=== PATIENT | female | born 1965 | race Caucasian/White ===

== ENCOUNTER 2016-11-23 21:38 | Emergency (ER) | payer OTHER, MEDICARE ==
[~2016-11-23] VITALS: Ht 162.6 cm; Wt 75.3 kg
[~2016-11-23 21:38] MED LIST: AMILORIDE HCL5 MG PO; ASPIR 8181 MG PO; CLONAZEPAM0.5 M2 PO; LAC-HYDRIN121 TOP; LEVEMIR100 U/ML SC; LEXAPRO 10MG10 MG PO; NORVASC 5MG TAB5 MG PO; NOVOLOG100 U/ML SC; PERCOCET 325 MG1 TAB PO; ROBAXIN 500MG500 MG PO; SIMVASTATIN20 MG PO; TEMOVATE TOP; VITAMIN D1000 IU PO
[2016-11-23 22:38] LABS: ABSOLUTE BASOPHIL COUNT 0 /CUMM (0.0-0.2); ABSOLUTE EOSINOPHIL COUNT 0 /CUMM (0.0-0.7); ABSOLUTE GRANULOCYTE CT 3.3 /CUMM (1.4-6.5); ABSOLUTE LYMPH COUNT 1.2 /CUMM (1.2-3.4); ABSOLUTE MONOCYTE COUNT 0.6 /CUMM (0.10-0.60); BASOPHIL % 0.2 % (0.0-2.0); EOSINOPHIL % 0.4 % (0-5); GRANULOCYTE % 64.6 % (42.2-75.2); HEMATOCRIT 32.9 % (37-47); MEAN CORPUSCULAR HGB 27.1 PG (27.0-31.0); MEAN CORPUSCULAR HGB CONC 33.4 G/DL (33.0-37.0); MEAN CORPUSCULAR VOLUME 81.1 FL (81.0-99.0); MEAN PLATELET VOLUME 7.6 FL (7.4-10.4); PLATELET COUNT 213 /CUMM (130-400); RBC DISTRIBUTION WIDTH 14.2 % (11.5-14.5); RED BLOOD CELL CT 4.05 /CUMM (4.20-5.40); WHITE BLOOD CELL COUNT 5.1 /CUMM (4.8-10.8)
[2016-11-23 22:56] VITALS: BP 102/53
--- NOTE | 2016-11-23 23:02 | RADIOLOGY REPORT ---
EXAMINATION: XR CHEST CLINICAL INFORMATION: Cough and fever COMPARISON: Chest x-ray 08/05/2015 TECHNIQUE: PA and lateral views of the chest were obtained. FINDINGS: No significant abnormality is noted involving the heart, lungs, mediastinum, bony thorax, or soft tissues. IMPRESSION: No acute abnormality of the chest.
[2016-11-23] MEDS ORDERED: DOXYCYCLINE HY100 M4 PO (23:15)
--- NOTE | 2016-11-23 23:16 | ED INFLUENZA/URI COMPLAINT ---
History of Present Illness General Chief Complaint: Upper Respiratory Sx/Fever Stated Complaint: UPPER RESP SYMPTOMS Source: patient Exam Limitations: no limitations Vital Signs & Intake/Output Vital Signs & Intake/Output Vital Signs Date Time Temp Pulse Resp B/P Pulse O2 O2 Flow FiO2 Ox Delivery Rate 11/23 2257 101.5 11/236 101.3 69 16 102/53 100 Room Air 11/23 2149 102.5 95 20 141/84 99 Room Air Allergies Coded Allergies: Penicillins (Intermediate, UNKNOWN 11/23/16) ciprofloxacin (Intermediate, RASH 11/23/16) Sulfa (Sulfonamide Antibiotics) (HIVES 11/23/16) Reconcile Medications Amiloride Hydrochloride (Amiloride HCl) 5 MG TAB 1 TAB PO DAILY DIURESIS ( Reported) Aspirin (Ecotrin) 81 MG ECT 1 TAB PO DAILY HEART HEALTH (Reported) Azithromycin 250 MG TABLET 1 DP PO AD ANTIBIOTIC (Reported) 2 the first day followed by 1 for days 2-5 Clonazepam 0.5 MG TABLET 1 TAB PO 4 TIMES/DAY ANXIETY (Reported) Doxycycline Hyclate 100 MG TABLET 1 TAB PO BID sinusitis Escitalopram Oxalate (Lexapro 10MG) 10 MG TAB 1 TAB PO AT BEDTIME ANXIETY ( Reported) Gabapentin (Neurontin) 300 MG CAPSULE 1 CAP PO TID NEUROPATHY (Reported) Guaifenesin/Codeine Phosphate (Cheratussin AC Syrup) 100 MG-10 MG/5 ML LIQUID 10 ML PO Q4P PRN COUGH (Reported) Insulin Aspart, Recombinant (Novolog) 100 U/ML DMITRI 0 UNITS SC TIDAC GLUCOSE CONTROL (Reported) BLOOD SUGAR # OF UNITS < 80 NONE 80-150 NONE 151-200 4 UNITS 201-250 6 UNITS 251-300 8 UNITS 301-350 10 UNITS 351-400 12 UNITS >400 14 UNITS and call Insulin Glargine,Hum.rec.anlog (Toujeo Solostar) 300 UNIT/ML (1.5 ML) INSULN.PEN 30 UNITS SC QPM DM (Reported) Methocarbamol (Robaxin 500MG) 500 MG TAB 1 TAB PO AT BEDTIME MUSCLE SPASM ( Reported) Oxycodone HCl 10 MG TABLET 1 TAB PO Q3-4H PRN PAIN (Reported) Simvastatin (Zocor) 20 MG TAB 1 TAB PO QPM CHOLESTEROL (Reported) Triage Note: TRIAGE: PT TO ER C/C URI S/S, ONSET THIS MORNING. HAD DIARRHEA AND STOMACH CRAMPS WITH HEAD COLD THE OTHER DAY. TEMP 102.5 AT TRIAGE. PT WAS TAKING HUSBANDS UNUSED ZPACK (FULL PRESCRIPTION), HAS ONE DAY LEFT. REPORTS COUGH IS PRODUCTIVE WITH GREEN PHLEGM. Triage Nurses Notes Reviewed? yes Onset: Abrupt Duration: week(s): (1), constant, continues in ED Timing: recent history Severity: moderate, severe No Modifying Factors: none HPI: 51-year-old female comes into emergency room with complaints of nasal congestion , runny nose, cough with mucus production. Patient has been sick since last Saturday. Patient started with vomiting and diarrhea. Patient had upper respiratory symptoms. The symptoms have persisted. Patient has been running a fever at home. Denies any, pain. Patient was started on a Z-Italo a few days ago that her had that was unopened. Symptoms continued to be persistent. ([place]) Past History Travel History Traveled to [place] past 21 day No Medical History Any Pertinent Medical History? see below for history Neurological: restless leg syndrome EENT: NONE Cardiovascular: hypertension, hyperlipidemia Respiratory: NONE Gastrointestinal: NONE Hepatic: NONE Renal: NONE Musculoskeletal: osteoarthritis, CHRONIC BACK PAIN Psychiatric: anxiety, depression Endocrine: diabetes, diabetic ketoacidosis Blood Disorders: NONE Cancer(s): NONE RECRUITMENT DIRECTOR/Reproductive: NONE Other Medical Hx: rosacea History of MRSA: No History of VRE: No History of CDIFF: No Tetanus Vaccine: 06/19/13 Surgical History Surgical History: carpal tunnel surgery Psychosocial History Who do you live with Spouse Services at Home None What is your primary language Argentine Tobacco Use: Quit >30 days ago ETOH Use: occasional use Illicit Drug Use: denies illicit drug use Family History Family History, If Any: BROTHER FH: diabetes mellitus BROTHER FH: hypertension MOTHER FH: coronary artery bypass surgery FH: stroke FATHER FH: hypertension Hx Contributory? No ([place]) Review of Systems Review of Systems Constitutional: Reports: see HPI. EENTM: Reports: see HPI. Respiratory: Reports: see HPI. Cardiovascular: Reports: no symptoms. GI: Reports: no symptoms. Genitourinary: Reports: no symptoms. Musculoskeletal: Reports: no symptoms. Skin: Reports: no symptoms. Neurological/Psychological: Reports: no symptoms. Hematologic/Endocrine: Reports: no symptoms. Immunologic/Allergic: Reports: no symptoms. All Other Systems: Reviewed and Negative ([place]) Physical Exam Physical Exam General Appearance: well developed/nourished, alert, awake, mild distress Head: atraumatic Eyes: Bilateral: normal appearance, EOMI. Ears, Nose, Throat: normal ENT inspection, moist mucous membrane, nasal congestion, nasal drainage Neck: normal inspection Respiratory: no respiratory distress, decreased breath sounds (right lower lugn base) Cardiovascular: regular rate/rhythm Back: normal inspection Extremities: normal inspection, normal range of motion Neurologic/Psych: awake, alert, oriented x 3, normal gait, normal mood/affect Skin: intact, normal color Core Measures Severe Sepsis Present: No Septic Shock Present: No ([place]) Progress Differential Diagnosis: influenza, meningitis, neutropenia, otitis, pneumonia, pharyngitis, sinusitis Plan of Care: Orders Procedure Date/time Status COMPREHENSIVE METABOLIC PANEL 11/23 2211 Active CBC WITHOUT DIFFERENTIAL 11/23 2211 Complete RAPID VIRAL INFLUENZA A 11/23 2156 Complete Current Medications Sig/Issac Start time Last Medication Dose Stop Time Status Admin Sodium Chloride 1,000 ML BOLUS ONE 11/23 2330 AC (Normal Saline 0.9%) 11/24 0029 Ketorolac 60 MG ONCE ONE 11/23 2215 CAN Tromethamine 11/23 221 (Toradol) Laboratory Tests 11/23/16 2316: Urine Color Cancelled, Urine Clarity Cancelled, Urine pH Cancelled, Ur Specific [place] Cancelled, Urine Protein Cancelled, Urine Ketones Cancelled, Urine Nitrite Cancelled, Urine Bilirubin Cancelled, Urine Urobilinogen Cancelled, Ur Leukocyte Esterase Cancelled, Ur Microscopic Cancelled, Urine Hemoglobin Cancelled, Urine Glucose Cancelled 11/23/16 2231: Anion Gap 14, Estimated GFR > 60, BUN/Creatinine Ratio Pending, Glucose 301 H, Calcium 8.4, Total Bilirubin 0.4, AST 22, ALT 25, Alkaline Phosphatase 173 H, Total Protein 6.4, Albumin 3.7, Globulin 2.7, Albumin/Globulin Ratio Pending, CBC w Diff NO MAN DIFF REQ, RBC 4.05 L, MCV 81.1, MCH 27.1, RDW 14.2, MPV 7.6, Gran % 64.6, Lymphocytes % 22.4, Monocytes % 12.4 H, Eosinophils % 0.4, Basophils % 0.2, Absolute Granulocytes 3.3, Absolute Lymphocytes 1.2, Absolute Monocytes 0.6, Absolute Eosinophils 0, Absolute Basophils 0, PUBS MCHC 33.4 Diagnostic Imaging: Viewed by Me: Radiology Read. Discussed w/RAD: Radiology Read. Radiology Impression: SERVICE DATE: 11/23/16 EXAM TYPE: RAD - XRY-CHEST XRAY, PA AND LATERAL EXAMINATION: XR CHEST CLINICAL INFORMATION: Cough and fever COMPARISON: Chest x-ray 08/05/2015 TECHNIQUE: PA and lateral views of the chest were obtained. FINDINGS: No significant abnormality is noted involving the heart , lungs, mediastinum, bony thorax, or soft tissues. IMPRESSION: No acute abnormality of the chest. Initial ED EKG: none (JAXON STEPHENS,B[place]) Departure Departure Disposition: HOME OR SELF CARE Condition: Stable Clinical Impression Primary Impression: Sinusitis Secondary Impressions: Hyponatremia, Viral syndrome Referrals: SOULEYMANE HARRIS,ESTEVAN Cortez (PCP/Family) Additional Instructions: Take doxycycline as prescribed. Rest. Drink plenty of fluids. Return if any other concerns worsening symptoms. Heavy sodium rechecked by her primary care doctor. Return if any other concerns. Please go over all results of today's visit with your primary care doctor. Contact your primary care doctor to let them know you were here in the emergency room. There may be nonspecific findings which may not be related to your visit today here in the emergency room but may require further evaluation and chronic monitoring by your primary care doctor. If you had a laceration today the chance of foreign body always remains. You should follow-up with your primary care doctor for recheck in 3-5 days for a wound check. If you had an x-ray done there is a chance that a fracture could have been missed on initial read and you should follow-up with your primary care doctor for repeat x-rays if symptoms persist. If your blood pressure was elevated here in the emergency room please have rechecked by her primary care doctor within the next 48 hours by your primary care doctor. If you were prescribed a narcotic here in the emergency room or any type of controlled substances you're not allowed to drive while taking this medication or operate any type of heavy machinery. Narcotics can make you feel lightheaded dizziness nausea and can cause constipation. You may need to flower buncher or picker a stool softener. Thank you for choosing [facility] emergency room. Please return to the emergency room immediately if you have any other concerns worsening of symptoms. Departure Forms: Customer Survey General Discharge Information Prescriptions: Current Visit Scripts Doxycycline Hyclate 1 TAB PO BID #14 TAB Comments Patient feels significantly better after IV fluids and IV Toradol. Despite negative flu swab This could likely be influenza. Patient covered with doxycycline to cover atypical pneumonia versus sinusitis. Patient needs close follow-up with primary care doctor. Return if any other concerns. Patient was reevaluated multiple times. Shared decision making patient agrees with plan of care. Upon discharge patient feels much better and clinically looks better. Patient needs to stay hydrated at home. Symptoms likely viral. ([place]) PA/WEAVE ROOM SUPERVISOR Co-Sign Statement Statement: ED Attending supervision documentation- [] I saw and evaluated the patient. I have also reviewed all the pertinent lab results and diagnostic results. I agree with the findings and the plan of care as documented in the PA's/WEAVE ROOM SUPERVISOR's documentation. [X] I have reviewed the ED Record and agree with the PA's/WEAVE ROOM SUPERVISOR's documentation. [] Additions or exceptions (if any) to the PAs/WEAVE ROOM SUPERVISOR's note and plan are summarized below: [] (EWA HARRIS,SULMA Boone)
[2016-11-23] MEDS ORDERED: NEURONTIN300 M1 PO (23:19)
[2016-11-23] MEDS ORDERED: TOUJEO SOL300 UNIT/1 SC (23:21)
[2016-11-23] MEDS ORDERED: OXYCODONE HCL10 M2 PO (23:22)
[2016-11-23] MEDS ORDERED: AZITHROMYCIN250 M1 PO (23:23)
[2016-11-23] MEDS ORDERED: CHERATUSSIN AC118 ML PO (23:24)
== END 2016-11-23 23:37 ==
LOC: ERH 21:38
PROVIDERS: Physician Assistant Medical
DX: J32.9 Chronic sinusitis, unspecified (principal); B34.9 Viral infection, unspecified; E87.1 Hypo-osmolality and hyponatremia; Z87.891 Personal history of nicotine dependence
CPT/HCPCS: 87804; 87804-59; 96374; J1885